=== PATIENT | female | born 1955 | race Caucasian/White ===

== ENCOUNTER 2019-02-07 06:42 | Day surgery (SDC) | payer OTHER ==
[~2019-02-07] VITALS: Ht 165.1 cm; Wt 58.2 kg
[~2019-02-07 06:42] MED LIST: SODIUM CHLORIDE 0.9% 1,000 ML ONE
[2019-02-07] MEDS ORDERED: LIDOCAINE 2% 30 ML JELLY TP ONE (06:43)
[2019-02-07] MEDS ORDERED: ALBUTEROL SULFATE 2.5 MG/0.5 ML NEB SOLUTION NEB ONE (06:43)
[2019-02-07] MEDS ORDERED: BENZOCAINE 20% 50 MCG/SPRAY 57 GM TP ONE (06:43)
[2019-02-07] MEDS ORDERED: LIDOCAINE 4% 50 ML SOLUTION TP ONE (06:43)
[2019-02-07] MEDS ORDERED: SODIUM CHLORIDE 0.9% 1,000 ML IV ONE (07:45)
[2019-02-07] MEDS ORDERED: ATOR20TA86 PO (07:49)
[2019-02-07] MEDS ORDERED: ESCI20TA PO (07:49)
[2019-02-07] MEDS ORDERED: DISU250 PO (07:49)
[2019-02-07] MEDS ORDERED: MONT10TA21 PO (07:49)
[2019-02-07] MEDS ORDERED: MIDAZOLAM HCL 2 MG/2 ML VIAL ONE (08:07)
[2019-02-07] MEDS ORDERED: FentaNYL CITRATE-PF 100 MCG/2 ML VIAL ONE (08:07)
[2019-02-07] MEDS ORDERED: MethylPREDNISolone SOD SUCC 125 MG/2 ML VIAL ONE (09:29)
[2019-02-07] MEDS ORDERED: MethylPREDNISolone SOD SUCC 125 MG/2 ML VIAL IVP ONE (09:30)
[2019-02-07] MEDS ORDERED: OXYGEN THERAPY IH SCH (20:00)
== END 2019-02-07 11:10 | disposition home or self-care (01) ==
LOC: SURGERY 06:42
PROVIDERS: ATTEND Internal Medicine Critical Care Medicine
DX: R05 Cough (principal); R91.1 Solitary pulmonary nodule; J34.89 Other specified disorders of nose and nasal sinuses; B37.0 Candidal stomatitis; I25.10 Atherosclerotic heart disease of native coronary artery without angina pectoris; J44.9 Chronic obstructive pulmonary disease, unspecified; R19.09 Other intra-abdominal and pelvic swelling, mass and lump; Z79.899 Other long term (current) drug therapy
CPT/HCPCS: 31623; 31624; 71045; 87015; 87070; 87077; 87101; 87205; 87206; 87220; 88108; 88184; 88185; 88312; J2250; J2930; J3010; J7030